=== PATIENT | male | born 1980 | race Caucasian/White ===

== ENCOUNTER 2024-01-21 08:30 | Day surgery (SDC) | payer BC ==
[2024-01-19 11:10] VITALS: BP 141/95; PULSE 105; RESP 18; TEMP 98; O2SAT 98
[2024-01-19 12:27] LABS: BASOPHIL % 0.3 % (0.2-1.2); EOSINOPHIL # 0.1 10^3/uL (0.0-0.2); EOSINOPHIL % 1.6 % (0.0-5.0); HEMATOCRIT(ML) 52.5 % (37.0-53.0); HEMOGLOBIN 17.5 g/dL (13.9-16.3); LYMPHOCYTES # 1.79 10^3/uL1 (1.0-4.8); LYMPHOCYTES % 22.6 % (24.0-44.0); MEAN CORP HGB 30.6 pg (26-34); MEAN CORP HGB CONCENTRATION 33.3 g/dL (33-36.5); MEAN CORP VOLUME 91.8 fL (78-100); MONOCYTES # 0.9 10^3/uL (0.3-0.8); MONOCYTES % 11.1 % (5.0-12.0); NEUTROPHIL # 5.1 10^3/uL (1.8-7.7); NEUTROPHILS % 64.1 % (41.0-85.0); PLATELET COUNT 207 10^3/uL (150-400); RED BLOOD CELL 5.72 10^6/uL (4.50-5.90); RED CELL DISTRIBUTION WIDTH 13.7 % (11.5-14.5); WHITE BLOOD CELL 7.9 10^3/uL (4.5-11.0)
[2024-01-19 12:46] LABS: +ADD MANUAL DIFF(NO CHRG) NO
[2024-01-19 12:51] LABS: ALBUMIN(ML) 3.3 g/dL (3.4-5.0); ALBUMIN/GLOBULIN RATIO 0.891; ANION GAP 13.7; BUN/CREATININE RATIO 7.62 (10.0-20.0); CALCIUM 8.8 mg/dL (8.4-10.5); CREATININE SERUM 1.18 mg/dL (0.59-1.40); EST GFR, NON-AA 66.5 (>/=60); POTASSIUM 3.7 mmol/L (3.6-5.2)
[2024-01-19 12:52] LABS: INR 1.1
[2024-01-21] VITALS (15 sets, daily range): BP systolic 103–168; BP diastolic 48–102; PULSE 76–98; RESP 16–22; TEMP 97.3–97.9; O2SAT 93–98
[~2024-01-21] VITALS: Ht 188 cm; Wt 102.1 kg
[~2024-01-21 08:30] MED LIST: ALPR1TAB6 PO; ANAS1TAB PO; ARMO200T PO; AZEL50FO TP; ISOTON GENTAMICIN 80 MG/100 ML 100 ML IV ONE; LACTATED RINGERS 1,000 ML ONE; LOVENOX SQ ONE; MARCAINE 0.25%-EPI 1:200,000 ONE; MEFOXIN ONE; NS 100ML 100 ML IV ONE; OMEP1CAP18 PO; SODIUM CHLORIDE IRR BOTTLE IR ONE; TADA5TAB PO; TEST200V3 IM; WATER ONE
[2024-01-21] MEDS ORDERED: VERSED ONE (08:49)
[2024-01-21] MEDS: D5LR 1000ML 1,000 ML IV ONE (08:50)
[2024-01-21] MEDS: LOVENOX SQ ONE (08:58)
[2024-01-21] MEDS ORDERED: EXPAREL 266 MG/20 ML VIAL IJ ONE (09:32)
[2024-01-21] MEDS ORDERED: OFIRMEV 1000 MG/100 ML 100 ML IV ONE (09:37)
[2024-01-21] MEDS ORDERED: TORADOL ONE (09:37)
[2024-01-21] MEDS ORDERED: BRIDION IV ONE (09:37)
[2024-01-21] MEDS ORDERED: DECADRON ONE (09:37)
[2024-01-21] MEDS ORDERED: ZEMURON IV ONE (09:37)
[2024-01-21] MEDS ORDERED: ZOFRAN ONE (09:37)
[2024-01-21] MEDS ORDERED: XYLOCAINE 2% 5ML VIAL ONE (09:38)
[2024-01-21] MEDS ORDERED: SUBLIMAZE 100MCG/2ML ONE (09:38)
[2024-01-21] MEDS ORDERED: DILAUDID ONE ×2 (09:38→11:29)
[2024-01-21] MEDS: MEFOXIN 2 GM in NS 100ML 100 ML IV ONE (09:47)
[2024-01-21] MEDS ORDERED: [UNRECOGNIZED DRUG - OTHER] IV ONE (11:05)
[2024-01-21] MEDS: DILAUDID IV ONE ×4 (11:25→11:40)
== END 2024-01-21 12:43 | disposition home or self-care (01) ==
LOC: SDC 08:30
PROVIDERS: ATTEND Surgery
DX: K42.0 Umbilical hernia with obstruction, without gangrene (principal); Z30.2 Encounter for sterilization; K21.9 Gastro-esophageal reflux disease without esophagitis; Z79.01 Long term (current) use of anticoagulants; Z88.6 Allergy status to analgesic agent; Z79.899 Other long term (current) drug therapy
CPT/HCPCS: 80053; 85025; 36415; 85610; 85730; 49592; 55250; J3490 ×4; C9290; J1580; J7120; J7121; A4217 ×2; A6222; A6258; J1100; J0694 ×2; J1171; J0131; J2002; J1650; J2405; J2250; J1885; J3010; J2003